=== PATIENT | male | born 1960 | race Caucasian/White ===

== ENCOUNTER 2019-04-06 21:26 | Inpatient (IN) | payer BC, OTHER ==
[~2019-04-06] VITALS: Ht 175.3 cm; Wt 91.8 kg
[2019-04-06] MEDS ORDERED: NS IV 1000 ML 1,000 ML IV ONE (21:37)
[2019-04-06] MEDS ORDERED: inSUlin (REGULAR) HUMAN 1 UNIT/0.01 ML (CHARGE PER UNIT) IV STA (21:37)
[2019-04-06 21:52] LABS: WHITE BLOOD COUNT 4.7 10^3/uL (4.3-11.0)
[2019-04-06 21:53] LABS: BASOPHILS # (AUTO) 0.1 10^3/uL (0.0-0.1); BASOPHILS % (AUTO) 1 % (0-10); EOSINOPHILS % (AUTO) 0 % (0-10); HEMATOCRIT 40 % (40-54); HEMOGLOBIN 15.7 G/DL (13.3-17.7); LYMPHOCYTES # (AUTO) 1.5 X 10^3 (1.0-4.0); LYMPHOCYTES % (AUTO) 33 % (12-44); MEAN CORPUSCULAR HEMOGLOBIN 33 PG (25-34); MEAN CORPUSCULAR HGB CONC 39 G/DL (32-36); MEAN CORPUSCULAR VOLUME 85 FL (80-99); MEAN PLATELET VOLUME 9.1 FL (7.4-10.4); MONOCYTES # (AUTO) 0.4 X 10^3 (0.0-1.0); MONOCYTES % (AUTO) 8 % (0-12); NEUTROPHILS # (AUTO) 2.7 X 10^3 (1.8-7.8); NEUTROPHILS % (AUTO) 58 % (42-75); PLATELET COUNT 196 10^3/uL (130-400); RED CELL DISTRIBUTION WIDTH 13.3 % (10.0-14.5)
--- NOTE | 2019-04-06 22:07 | Diagnostic Imaging Report ---
Clinical indication: Patient confused and blurred vision. Patient has hypertension and diabetes. Exam: Chest x-ray PA and lateral views. Comparisons: None. Findings: Lungs/pleura: Likely mild left basilar atelectasis and slight elevation of the left hemidiaphragm. Otherwise, lungs are clear. There is no pneumothorax. There is no pleural effusion. Mediastinum: Unremarkable. Pulmonary vasculature: Unremarkable. Heart: Unremarkable. Bones/extrathoracic soft tissue: There are hypertrophic spurs involving the thoracic spine. Impression: Likely mild left basilar atelectasis. Otherwise, there is no radiographic evidence of acute cardiopulmonary process. Dictated by: Dictated on workstation # [id number]
[2019-04-06 22:11] LABS: POTASSIUM 4.3 MMOL/L (3.6-5.0); SODIUM 126 MMOL/L (135-145)
[2019-04-06 22:12] LABS: BUN/CREATININE RATIO 20; CARBON DIOXIDE 22 MMOL/L (21-32); CHLORIDE 87 MMOL/L (98-107); CREATININE SERUM 0.74 MG/DL (0.60-1.30); GFR ESTIMATED > 60; GLUCOSE 450 MG/DL (70-105)
[2019-04-06 22:13] LABS: ALBUMIN 3.3 GM/DL (3.2-4.5); ALKALINE PHOSPHATASE 120 U/L (40-136); BILIRUBIN,TOTAL 0.3 MG/DL (0.1-1.0); CALCIUM 8.7 MG/DL (8.5-10.1); MAGNESIUM 1.9 MG/DL (1.8-2.4); TOTAL PROTEIN 6.1 GM/DL (6.4-8.2)
[2019-04-06] MEDS ORDERED: lisINopril 10 MG (PRINIVIL) TABLET PO ONE (22:15)
[2019-04-06] MEDS ORDERED: LABETALOL HCL 20 MG/4 ML VIAL IV ONE (22:15)
[2019-04-06 22:35] LABS: BILIRUBIN,URINE NEGATIVE (NEGATIVE); CLARITY,URINE CLEAR; COLOR,URINE YELLOW; GLUCOSE, URINE (UA) 3+ (NEGATIVE); KETONES,URINE NEGATIVE (NEGATIVE); LEUKOCYTE ESTERASE ,URINE NEGATIVE (NEGATIVE); NITRITE,URINE NEGATIVE (NEGATIVE); PROTEIN,URINE NEGATIVE (NEGATIVE); SQUAMOUS EPITHELIAL CELL,UR 0-2 /HPF; UROBILINOGEN,URINE 0.2 MG/DL (NORMAL)
--- NOTE | 2019-04-06 22:41 | ED General ---
General Chief Complaint: Glucose Problems Nursing Triage Note: pt with known hx of diabetes, used to take metformin and cholesterol medication but has not since retired last May. pt brought in per ems with co dizziness and shaking, blood sugar 481 per ems, pt also noted to be hypertensive per ems with initial b/p 221 systolic. Nursing Sepsis Screen: No Definite Risk Source of Information: Patient, EMS Exam Limitations: No Limitations History of Present Illness Date Seen by Provider: April 06, 2019 Time Seen by Provider: 21:35 Initial Comments Here with report of having global weakness yesterday and vision problems that resolved after a few minutes. He had another episode this evening about 30 minutes prior to arrival and did not feel like it was getting better so called EMS. It is better now. States that he notes that he has weakness of his arms and then it spreads to his legs. He is getting shaking with that. Did have an episode of chest tightness and does have a headache. He is diabetic and was noted to be hypertensive. He did not know about high blood pressure but did know about the diabetes. He has not seen his doctor in a year because he retired. Because of this he has not had his prescription for metformin in a year. EMS noted blood sugar in the high 400s. Also blood pressure ranges from 180-210 systolic over 80s and 90s. Timing/Duration: 1-2 Days, Getting Worse, Intermittent Severity: Moderate Associated Systoms: Chest Pain; No Diaphoresis, No Fever/Chills; Headaches; No Loss of Appetite; Malaise; No Nausea/Vomiting, No Seizure, No Shortness of Air; Weakness Allergies and Home Medications Allergies Coded Allergies: Sulfa (Sulfonamide Antibiotics) (Verified Allergy, Unknown, 04/06/19) Patient Home Medication List Home Medication List Reviewed: Yes Review of Systems Review of Systems Constitutional: see HPI; No chills, No fever; weakness EENTM: blurred vision; No hearing loss, No eye pain Respiratory: No cough, No short of breath Cardiovascular: chest pain; No edema, No palpitations Gastrointestinal: No constipation, No nausea, No vomiting Genitourinary: No dysuria, No pain Musculoskeletal: see HPI; No muscle pain; muscle weakness Skin: no symptoms reported Psychiatric/Neurological: Headache, Weakness Hematologic/Lymphatic: No Symptoms Reported Immunological/Allergic: no symptoms reported All Other Systems Reviewed Negative Unless Noted: Yes Past Qmrbxmu-Hwgaml-Oqrdxk Hx Past Med/Social Hx: Reviewed Nursing Past Med/Soc Hx Patient Social History Alcohol Use: Denies Use Recreational Drug Use: No Smoking Status: Never a Smoker 2nd Hand Smoke Exposure: No Recent Foreign Travel: No Contact w/Someone Who Travel: No Recent Infectious Disease Expo: No Recent Hopitalizations: No Physical Abuse: No Sexual Abuse: No Mistreated: No Fear: No Seasonal Allergies Seasonal Allergies: No Past Medical History Surgeries: No Respiratory: No Cardiac: No Neurological: No Genitourinary: No Gastrointestinal: No Musculoskeletal: No Endocrine: Yes Diabetes, Non-Insulin dep HEENT: No Cancer: No Psychosocial: No Integumentary: No Blood Disorders: No Family Medical History Reviewed Nursing Family Hx Physical Exam Vital Signs Vital Signs - First Documented 04/06/19 21:50 Temp 98.4 Pulse 91 Resp 18 B/P (MAP) 212/113 (146) Pulse Ox 99 O2 Delivery Nasal Cannula O2 Flow Rate 2.00 Capillary Refill : Less Than 3 Seconds Height, Weight, BMI Height: 5'9.00" Weight: 195lbs. oz. 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 Sensation equal and normal bilateral. No pronator drift to any extremity.) Skin: Normal Color, Warm/Dry Progress/Results/Core Measures Suspected Sepsis Recent Fever Within 48 Hours: No Infection Criteria Present: None New/Unexplained Altered Menta: No Sepsis Screen: No Definite Risk SIRS Temperature:98.4 Pulse: 91 Respiratory Rate: 18 Laboratory Tests 04/06/19 21:35: White Blood Count 4.7 Blood Pressure 212 /113 Mean: 146 Laboratory Tests 04/06/19 21:35: Creatinine 0.74, Platelet Count 196, Total Bilirubin 0.3 Results/Orders Lab Results Laboratory Tests Test 04/06/19 21:35 04/06/19 21:44 04/06/19 22:20 04/06/19 22:41 Range/Units White Blood Count 4.7 4.3-11.0 10^3/uL Red Blood Count 4.71 4.35-5.85 10^6/uL Hemoglobin 15.7 13.3-17.7 G/DL Hematocrit 40 40-54 % Mean Corpuscular Volume 85 80-99 FL Mean Corpuscular Hemoglobin 33 25-34 PG Mean Corpuscular Hemoglobin Concent 39 H 32-36 G/DL Red Cell Distribution Width 13.3 10.0-14.5 % Platelet Count 196 130-400 10^3/uL Mean Platelet Volume 9.1 7.4-10.4 FL Neutrophils (%) (Auto) 58 42-75 % Lymphocytes (%) (Auto) 33 12-44 % Monocytes (%) (Auto) 8 0-12 % Eosinophils (%) (Auto) 0 0-10 % Basophils (%) (Auto) 1 0-10 % Neutrophils # (Auto) 2.7 1.8-7.8 X 10^3 Lymphocytes # (Auto) 1.5 1.0-4.0 X 10^3 Monocytes # (Auto) 0.4 0.0-1.0 X 10^3 Eosinophils # (Auto) 0.0 0.0-0.3 10^3/uL Basophils # (Auto) 0.1 0.0-0.1 10^3/uL Sodium Level 126 L 135-145 MMOL/L Potassium Level 4.3 3.6-5.0 MMOL/L Chloride Level 87 L 98-107 MMOL/L Carbon Dioxide Level 22 21-32 MMOL/L Anion Gap 17 H 5-14 MMOL/L Blood Urea Nitrogen 15 7-18 MG/DL Creatinine 0.74 0.60-1.30 MG/DL Estimat Glomerular Filtration Rate > 60 BUN/Creatinine Ratio 20 Glucose Level 450 *H 70-105 MG/DL Calcium Level 8.7 8.5-10.1 MG/DL Corrected Calcium 9.3 8.5-10.1 MG/DL Magnesium Level 1.9 1.8-2.4 MG/DL Total Bilirubin 0.3 0.1-1.0 MG/DL Aspartate Amino Transf (AST/SGOT) 5-34 U/L Alanine Aminotransferase (ALT/SGPT) 0-55 U/L Alkaline Phosphatase 120 40-136 U/L Myoglobin 140.2 H 10.0-92.0 NG/ML Troponin T 18 H <=15 NG/L Total Protein 6.1 L 6.4-8.2 GM/DL Albumin 3.3 3.2-4.5 GM/DL Glucometer 434 *H 359 H 70-110 MG/DL Urine Color YELLOW Urine Clarity CLEAR Urine pH 6.0 5-9 Urine Specific Woody <1.005 1.016-1.022 Urine Protein NEGATIVE NEGATIVE Urine Glucose (UA) 3+ H NEGATIVE Urine Ketones NEGATIVE NEGATIVE Urine Nitrite NEGATIVE NEGATIVE Urine Bilirubin NEGATIVE NEGATIVE Urine Urobilinogen 0.2 NORMAL MG/DL Urine Leukocyte Esterase NEGATIVE NEGATIVE Urine RBC (Auto) NEGATIVE NEGATIVE Urine RBC NONE /HPF Urine WBC NONE /HPF Urine Squamous Epithelial Cells 0-2 /HPF Urine Crystals NONE /LPF Urine Bacteria NONE /HPF Urine Casts NONE /LPF Urine Mucus NEGATIVE /LPF Urine Culture Indicated NO My Orders Orders - RANGEL APPLE MD Cbc With Automated Diff (04/06/19 21:37) Comprehensive Metabolic Panel (04/06/19 21:37) Magnesium (04/06/19 21:37) Ua Culture If Indicated (04/06/19 21:37) Myoglobin Serum (04/06/19 21:37) Troponin T (04/06/19 21:37) Ed Iv/Invasive Line Start (04/06/19 21:37) Ekg Tracing (04/06/19 21:37) Monitor-Rhythm Ecg Trace Only (04/06/19 21:37) Insulin (Regular) Human (Humulin R (Per (04/06/19 21:37) Ed Iv/Invasive Line Start (04/06/19 21:37) Ns Iv 1000 Ml (Sodium Chloride 0.9%) (04/06/19 21:37) Chest 1 View Ap/Pa Only (04/06/19 21:37) Ct Head Wo-R/O Stroke (04/06/19 22:06) Lisinopril Tablet (Zestril Tablet) (04/06/19 22:15) Labetalol Injection (Normodyne Injection (04/06/19 22:15) Dysphagia Screening Tool (04/06/19 22:08) Aspirin Chewable Tablet (Baby Aspirin Ch (04/06/19 22:52) Medications Given in ED Current Medications Medications Dose Ordered Sig/Adriel Route Start Time Stop Time Status Last Admin Dose Admin Labetalol HCl 20 mg ONCE ONCE IV 04/06/19 22:15 04/06/19 22:16 DC 04/06/19 22:20 20 MG Lisinopril 10 mg ONCE ONCE PO 04/06/19 22:15 04/06/19 22:16 DC 04/06/19 22:20 10 MG Sodium Chloride 1,000 ml @ 0 mls/hr Q0M ONCE IV 04/06/19 21:37 04/06/19 21:43 DC 04/06/19 21:49 999 MLS/HR Vital Signs/I&O 04/06/19 21:50 Temp 98.4 Pulse 91 Resp 18 B/P (MAP) 212/113 (146) Pulse Ox 99 O2 Delivery Nasal Cannula O2 Flow Rate 2.00 Capillary Refill : Less Than 3 Seconds Blood Pressure Mean: 146 Progress Note : Progress Note Seen and evaluated. IV, labs, EKG, chest x-ray, CT head, normal saline 1 L bolus and insulin 10 units IV. We will also give lisinopril 10 mg by mouth after dysphagia screen and labetalol 20 mg IV for hypertension. 2230: Unable to get AST and ALT results due to severely lipemic sample. Patient has significantly uncontrolled diabetes as well as uncontrolled hypertension in the setting of chest pain and hyperlipidemia. Patient is high risk for cardiac event and will needed further evaluation and monitoring. I did discuss with the patient the need for admission and he agrees. 2240: CT head negative. I will initiate transfer proceedings. 2255: I did discuss the case with Dr. HENRY. He accepts patient for admission, inpatient status. We will try to repeat CMP in the morning to get liver enzymes and evaluated. Fasting lipid panel. Insulin sliding scale will be initiated to determine insulin dosing requirements. We will continue metoprolol and lisinopril by mouth. Orders written. To go by EMS. Discussed with patient and family who agree with plan. ECG Initial ECG Impression Date: April 06, 2019 Initial ECG Impression Time: 21:35 Initial ECG Rate: 95 Initial ECG Rhythm: Normal Sinus Comment Sinus rhythm with left atrial abnormality and right axis deviation. Inferior Q waves and leads 3 and aVF with wandering baseline. No evidence of ST elevation VA. Interpreted by me. No previous available for comparison. Diagnostic Imaging Diagonstic Imaging: Xray Plain Films/CT/US/NM/MRI: chest Comments [facility], [place] NAME: DANETTE MACKENZIE REC#: [id number] PT STATUS: REG ER : 1960 PHYSICIAN: RANGEL APPLE MD ADMIT DATE: 04/06/19/ER FS Draft Date of Exam:04/06/19 CHEST 1 VIEW AP/PA ONLY Clinical indication: Patient confused and blurred vision. Patient has hypertension and diabetes. Exam: Chest x-ray PA and lateral views. Comparisons: None. Findings: Lungs/pleura: Likely mild left basilar atelectasis and slight elevation of the left hemidiaphragm. Otherwise, lungs are clear. There is no pneumothorax. There is no pleural effusion. Mediastinum: Unremarkable. Pulmonary vasculature: Unremarkable. Heart: Unremarkable. Bones/extrathoracic soft tissue: There are hypertrophic spurs involving the thoracic spine. Impression: Likely mild left basilar atelectasis. Otherwise, there is no radiographic evidence of acute cardiopulmonary process. Dictated on workstation # [id number] Dict: 04/06/192203 Trans: 04/06/192206 [facility] [id number] Interpreted by: SAVAGE TANG MD Electronically signed by: Diagonstic Imaging: CT Plain Films/CT/US/NM/MRI: head Comments Normal head/brain CT Reviewed: Reviewed [facility] Departure Communication (Admissions) Time/Spoke to Admitting Phy: 22:55 Impression Primary Impression: Uncontrolled diabetes mellitus with hyperglycemia Qualified Codes: E11.65 - Type 2 diabetes mellitus with hyperglycemia Additional Impressions: Severe uncontrolled hypertension Hyperlipidemia associated with type 2 diabetes mellitus Disposition: ADMITTED INPATIENT Condition: Stable Admissions Decision to Admit Reason: Admit from ER (General) Decision to Admit/Date: April 06, 2019 Time/Decision to Admit Time: 22:55 RANGEL APPLE MD April 06, 2019 22:41
[2019-04-06] MEDS ORDERED: ASPIRIN 81 MG CHEW (CHILDREN'S ASA) PO STA (22:52)
[2019-04-07] VITALS (7 sets, daily range): BP systolic 113–157; BP diastolic 55–79
--- NOTE | 2019-04-07 00:45 | NUR ---
DANETTE MACKENZIE admitted to room 414-1, with an admitting diagnosis of UNCONTROLLED DIABETES MELLITUS, HYPERTESION, AND HYPERLIPIDEMIA, on 04/06/19 from AM via [facility], accompanied by EMS.DANETTE MACKENZIE introduced to surroundings, call light, bed controls, phone, TV, temperature control, lights, meal times, smoking policy, visitor policy, side rail policy, bathrooms and showers. Patient Rights given to patient in the handbook. DANETTE MACKENZIE verbalizes understanding that [facility] is not responsible for the loss or damage to any personal effects or valuables that are kept in the patients posession during their hospitalization.
[2019-04-07] MEDS: NS IV 1000 ML 1,000 ML IV SCH ×2 (02:15→15:09)
[2019-04-07] MEDS: inSUlin ASPART (NovoLOG) 1 UNIT/0.01 ML (CHARGE PER UNIT) SC SCH ×4 (06:15→18:15)
--- NOTE | 2019-04-07 06:59 | Diagnostic Imaging Report ---
PROCEDURE: CT head wo r/o stroke. TECHNIQUE: Multiple contiguous axial images were obtained through the brain without the use of intravenous contrast. Auto Exposure Controls were utilized during the CT exam to meet ALARA standards for radiation dose reduction. INDICATION: Diabetes, dizziness and hyperglycemia as well as hypertension. No prior examinations are available for comparison. FINDINGS: The ventricles and sulci are within normal limits. There is no hydrocephalus or cerebral edema. There is no midline shift or mass effect. There is no intracranial mass, hemorrhage, or extra-axial fluid collection. The visualized paranasal sinuses and mastoid air cells are clear. There are no regional areas of decreased attenuation appreciated to suggest an acute CVA. IMPRESSION: No acute intracranial abnormality. Dictated by: Dictated on workstation # [id number]
--- NOTE | 2019-04-07 08:53 | NUR ---
PATIENT STATES HE IS NOT CURRENTLY TAKING ANY MEDICATION PRESCRIPTION OR OTC. HE HAS NOT TAKE ANY PRESCRIPTION MEDICATION FOR THE PAST YEAR SINCE HIS RETIRED.
[2019-04-07] MEDS: lisINopril 10 MG (PRINIVIL) TABLET PO SCH (08:55)
--- NOTE | 2019-04-07 08:55 | NUR ---
PATIENT'S BP THIS AM IS 113/55. NOTIFIED DR HENRY OF PATIENT'S CONDITION AND NO PREVIOUS HISTORY OF HYPERTENSION. HOLDING LISINOPRIL AND METOPROLOL PER HIS REQUEST.
--- NOTE | 2019-04-07 17:58 | History & Physical-Hospitalist ---
History of Present Illness HPI/Chief Complaint The patient is a 58-year-old white male who presented to the emergency room with a complaint of episodic weakness and vision problems. In the process of the workup he was found to be quite hypertensive. In addition his blood sugars were very high with an initial reading of 450. He reports that he had been aware that he was diabetic for perhaps 5 years. He reports that he once weighed over 300 pounds and changed a job. He often did not eat lunch and was more physically active and lost 100 pounds. He had been taking metformin. His personal physician retired about a year ago and then the medical delivery at [facility] became unclear and he stopped taking any medications. In retrospect he feels this was a bad decision. Date Seen 04/07/19 Time Seen by a Provider: 17:58 Attending Physician Jacques Henry MD PCP No,Local Physician Referring Physician Date of Admission April 06, 2019 at 22:57 Home Medications & Allergies Home Medications Reviewed patient Home Medication Reconciliation performed by pharmacy medication reconciliations deburr technician and/or nursing. Patients Allergies have been reviewed. Allergies Allergies Coded Allergies Sulfa (Sulfonamide Antibiotics) (Verified Allergy, Unknown, 04/06/19) Past Gpnlzxl-Ixmytx-Crecai Hx Past Med/Social Hx: Reviewed Nursing Past Med/Soc Hx Patient Social History Alcohol Use: Denies Use Recreational Drug Use: No Smoking Status: Never a Smoker 2nd Hand Smoke Exposure: No Recent Foreign Travel: No Contact w/other who traveled: No Recent Hopitalizations: No Recent Infectious Disease Expo: No Seasonal Allergies Seasonal Allergies: No Past Medical History Endocrine: Diabetes, Non-Insulin dep History of Blood Disorders: No Family History Reviewed Nursing Family Hx Review of Systems Constitutional: see HPI EENTM: blurred vision Respiratory: no symptoms reported Cardiovascular: no symptoms reported Gastrointestinal: no symptoms reported Genitourinary: frequency Musculoskeletal: no symptoms reported Skin: no symptoms reported Psychiatric/Neurological: No Symptoms Reported Physical Exam Physical Exam Vital Signs Vital Signs - First Documented 04/06/19 21:50 Temp 98.4 Pulse 91 Resp 18 B/P (MAP) 212/113 (146) Pulse Ox 99 O2 Delivery Nasal Cannula O2 Flow Rate 2.00 Capillary Refill : Less Than 3 Seconds Height, Weight, BMI Height: 5'9.00" Weight: 202lbs. 4.8oz. 91.562965jq; 29.9 BMI Method:Stated General Appearance: Mild Distress Eyes: Bilateral Eye Normal Inspection HEENT: Normal ENT Inspection Neck: Normal Inspection Respiratory: Chest Non Tender, Lungs Clear, Normal Breath Sounds, No Accessory Muscle Use, No Respiratory Distress Cardiovascular: Regular Rate, Rhythm, No Edema Gastrointestinal: Normal Bowel Sounds Back: Normal Inspection Extremity: Normal Capillary Refill Neurologic/Psychiatric: Alert, Oriented x3, No Motor/Sensory Deficits, Normal Mood/Affect Skin: Normal Color, Warm/Dry Lymphatic: No Adenopathy Results Results/Procedures Labs Laboratory Tests 04/06/19 21:35 04/08/19 05:12 04/08/19 05:46 Patient resulted labs reviewed. Assessment/Plan Admission Diagnosis Uncontrolled diabetes. 2.hypertension. Admission Status: Observation Clinical Quality Measures DVT/VTE Risk/Contraindication: Risk Factor Score Per Nursin RFS Level Per Nursing on Admit: 1=Low/No VTE PPX JACQUES HENRY MD April 07, 2019 17:58
[2019-04-07 18:18] LABS: CHOLESTEROL 573 MG/DL (< 200); HDL CHOLESTEROL < 15 MG/DL (40-60); TRIGLYCERIDES 5209 MG/DL (<150)
[2019-04-08 00:50] VITALS: BP 117/61
[2019-04-08 04:00] VITALS: BP 117/59
[2019-04-08] MEDS: NS IV 1000 ML 1,000 ML IV SCH (04:35)
[2019-04-08 06:02] LABS: BASOPHILS % (AUTO) 1 % (0-10); EOSINOPHILS # (AUTO) 0.1 10^3/uL (0.0-0.3); EOSINOPHILS % (AUTO) 2 % (0-10); HEMATOCRIT 34 % (40-54); HEMOGLOBIN 12.4 G/DL (13.3-17.7); LYMPHOCYTES # (AUTO) 1.1 X 10^3 (1.0-4.0); LYMPHOCYTES % (AUTO) 23 % (12-44); MEAN CORPUSCULAR HEMOGLOBIN 31 PG (25-34); MEAN CORPUSCULAR HGB CONC 36 G/DL (32-36); MEAN CORPUSCULAR VOLUME 86 FL (80-99); MEAN PLATELET VOLUME 9.2 FL (7.4-10.4); MONOCYTES # (AUTO) 0.8 X 10^3 (0.0-1.0); MONOCYTES % (AUTO) 18 % (0-12); NEUTROPHILS # (AUTO) 2.7 X 10^3 (1.8-7.8); NEUTROPHILS % (AUTO) 57 % (42-75); PLATELET COUNT 184 10^3/uL (130-400); WHITE BLOOD COUNT 4.7 10^3/uL (4.3-11.0)
[2019-04-08] MEDS: inSUlin ASPART (NovoLOG) 1 UNIT/0.01 ML (CHARGE PER UNIT) SC SCH ×3 (06:18→16:27)
[2019-04-08 06:23] LABS: ANISOCYTOSIS SLIGHT; BAND NEUTROPHILS 0 %; BASOPHILS % (MANUAL) 0 %; EOSINOPHILS % (MANUAL) 2 %; LYMPHOCYTES % (MANUAL) 32 %; MONOCYTES % (MANUAL) 18 %; NEUTROPHILS % (MANUAL) 46 %; REACTIVE LYMPHOCYTES 2 %
[2019-04-08 06:32] LABS: ALANINE AMINOTRANSFERASE 29 U/L (0-55); ALBUMIN 3.2 GM/DL (3.2-4.5); ALKALINE PHOSPHATASE 56 U/L (40-136); BILIRUBIN,TOTAL 0.3 MG/DL (0.1-1.0); BUN/CREATININE RATIO 7; CARBON DIOXIDE 12 MMOL/L (21-32); CHLORIDE 107 MMOL/L (98-107); CHOLESTEROL 513 MG/DL (< 200); CREATININE SERUM 0.84 MG/DL (0.60-1.30); GFR ESTIMATED > 60; GLUCOSE 188 MG/DL (70-105); HDL CHOLESTEROL < 15 MG/DL (40-60); POTASSIUM 4.5 MMOL/L (3.6-5.0); SODIUM 134 MMOL/L (135-145); TOTAL PROTEIN 7.3 GM/DL (6.4-8.2)
[2019-04-08 06:48] LABS: TRIGLYCERIDES 2984 MG/DL (<150); VLDL CHOLESTEROL 597 MG/DL (5-40)
[2019-04-08 08:00] VITALS: BP 120/76
[2019-04-08] MEDS: lisINopril 10 MG (PRINIVIL) TABLET PO SCH (08:44)
--- NOTE | 2019-04-08 10:22 | Progress Note-Hospitalist ---
Progress Note Progress Notes/Assess & Plan Date Seen 04/08/19 Time Seen by Provider: 10:16 Assessment & Plan The patient reports he continues to feel better. We again discussed the need for much more vigilant care of his diabetes. His hemoglobin A1c is not yet available. The lipid panel shows the triglycerides to be 2984. It is my opinion that just the treatment of his diabetes will improve this although probably not to a normal level. Accordingly he will be started on TriCor for the immediate future. Arrangements will be made for insulin and he has agreed with some prodding that he wants to stay in [place] for his treatment and therefore he will be scheduled with [facility]. Physical exam: He is alert and pleasant. Lungs are clear to auscultation. CV is regular without murmur. Abdomen is soft without pain to palpation. Impression: Diabetes poorly controlled. 2.hypertriglyceridemia. 3.hyperte nsion. Plan: Discharge. See discharge sequence for medications and routines. REY HENRY MD April 08, 2019 10:22
[2019-04-08] MEDS ORDERED: INSU100I29 SQ (10:48)
[2019-04-08] MEDS ORDERED: INSU100I14 SQ (10:48)
[2019-04-08] MEDS ORDERED: METO-387 PO (10:48)
[2019-04-08] MEDS ORDERED: LISI10TA2 PO (10:48)
[2019-04-08] MEDS ORDERED: FENO145T2 PO (10:48)
--- NOTE | 2019-04-08 10:54 | Discharge Inst-Simple/Standard ---
Discharge Inst-Standard Discharge Medications New, Converted or Re-Newed RX: Transmitted to Pharmacy Patient Instructions/Follow Up Plan of Care/Instructions/FU: Medications as listed. [facility] 10 [facility] to 2 weeks. Activity as Tolerated: Yes Goal: Management of hypertension. 2.hemoglobin A1c to decrease to the range of 7.0. 3.major reduction in your triglycerides. Discharge Diet: ADA Diet Planned Outpatient Orders/Ref. Pneu Vac Indicated: Yes REY HENRY MD April 08, 2019 10:54
[2019-04-08 12:00] VITALS: BP 135/83
[2019-04-08 15:57] VITALS: BP 133/71
--- NOTE | 2019-04-09 14:31 | Physician Query-Final Dx ---
Final Diagnosis Give Final Diagnosis Please give Final Diagnosis ELLIOTT RICHARDS April 09, 2019 14:31
== END 2019-04-08 17:25 | disposition home or self-care (01) | DRG 639 ==
LOC: ER FS 21:28 → 4TH 22:57
PROVIDERS: ADMIT Internal Medicine; ATTEND Internal Medicine
DX: E11.65 Type 2 diabetes mellitus with hyperglycemia (principal); I10 Essential (primary) hypertension; E78.1 Pure hyperglyceridemia; Z79.84 Long term (current) use of oral hypoglycemic drugs
CPT/HCPCS: 36415; 70450; 71045; 80053; 80061; 81000; 82962; 83036; 83735; 83874; 84484; 85007; 85025; 85027; 93005